=== PATIENT | male | born 1985 | race Caucasian/White ===

== ENCOUNTER 2020-12-03 22:31 | Emergency (ER) | payer OTHER, SELFPAY ==
[2020-12-03 22:45] VITALS: BP 116/64; PULSE 78; RESP 16; TEMP 36.6; O2SAT 96; BMI 36.1
--- NOTE | 2020-12-03 23:04 | ED.EYEPROB ---
HPI - Eye Problem General Chief complaint: Eye Problems Stated complaint: Foreign body in L eye Source: patient Mode of arrival: ambulatory Limitations: no limitations History of Present Illness HPI Narrative: 35-year-old male with no significant past medical history presents with a suspected foreign body in his left eye. He was working on his car welding and grinding, he was wearing a shield as well as safety glasses. He tried to irrigate the eye himself, but feels that there is something on the left side of his left eye. chief complaint: eye pain and eye redness Onset (ago): hour(s) Onset description: sudden Duration: constant Location: left eye Eye Symptoms: burning, redness, pain and foreign body sensation Place: home Mechanism: occurred while hammering/grinding Severity: moderate Severity scale (1-10): 7 If Pain, Quality: burning Associated symptoms: none Related Data Patient tetanus UTD: No Previous Rx's Medication Instructions Recorded erythromycin 0.5 inch OPHTHALMIC (EYE) Q4H #3.5 12/03/20 g Allergies Allergy/AdvReac Type Severity Reaction Status Date / Time acetaminophen [From TYLENOL] AdvReac Mild UPSET Unverified 06/20/20 17:07 STOMACH Review of Systems Review of Systems: Constitutional: No Fever, No Chills ENT/Mouth: No Ear Pain, No Hoarseness, No sore throat Eyes: Positive left Eye Pain, No Swelling, No Redness, No Foreign Body Cardiovascular: No Chest Pain, No SOB Respiratory: No Cough, No Dyspnea Gastrointestinal: No Nausea, No Vomiting, No Diarrhea, No abdominal Pain Genitourinary: No Dysuria, No Hematuria Musculoskeletal: No joint pain, No Myalgias, No Joint Swelling Skin: No Skin lacerations, No rash Neuro: No Weakness, No Numbness, No Paresthesias, No Loss of Consciousness, No Dizziness, No Headache Psych: No Anxiety/Panic, No Depression Heme/Lymph: no easy bruising, no Lymphadenopathy Endocrine: No Polyuria, No Polydipsia Yes all other systems are reviewed and are negative [facility] Past Medical History Attestation statement: The following information was validated with the patient. Source: old records reviewed Medical History No known health problems Social History Social History Advance Directives: No Physical Exam Vital Signs: Vital Signs: Last Vital Signs Temp 97.8 F 12/03/20 22:45 Pulse 78 12/03/20 22:45 Resp 16 12/03/20 22:45 BP 116/64 12/03/20 22:45 Pulse Ox 96 12/03/20 22:45 Body Mass Index 36.1 Appearance: Alert. Oriented X3. No acute distress. Eyes: Pupils equal, round and reactive to light. EOMI, no pain on extraocular movements. Linear approximately 2 mm in length Fluorescein uptake to the left lateral conjunctiva. Eyelids inverted no foreign bodies noted. ENT: Pharynx normal. Neck: Normal inspection. Neck supple. CVS: Normal heart rate and rhythm. Pulses normal. Respiratory: No respiratory distress. Breath sounds normal. Abdomen: Soft and nontender. Skin: Skin warm and dry. Normal skin color. Normal skin turgor. Extremities: No lower extremity edema. Neuro: No motor deficit. No sensory deficit. Course Course Course Narrative: 35-year-old male with no significant past medical history presents with a suspected foreign body to left eye after grinding and welding metal earlier today. PERRLA, EOMI. There is some fluorescein uptake, approximately 2 mm scratch on the left lateral conjunctiva. Plan of care is for updating Tdap and erythromycin eye ointment and follow up with Ophthalmology. Patient verbalized understanding of and agrees to plan of care discharge home. MDM - Eye Problem Differential Diagnosis Differential diagnosis: Likely corneal abrasion, conjunctivitis, acute iritis, hyphema and corneal ulcer Medical Records Attestation: I reviewed the patient's medical records. Discharge Plan Discharge Clinical Impression: Abrasion of conjunctiva, left Qualifiers: Encounter type: initial encounter Qualified Code(s): S05.02XA - Injury of conjunctiva and corneal abrasion without foreign body, left eye, initial encounter Patient Disposition: Home, Self-Care Instructions: Corneal Abrasion (ED) Additional Instructions: You were evaluated for foreign body suspected to the left eye. Your discharge instructions state corneal abrasion, you do have a conjunctival abrasion. The information is the same with the exception of the location of the injury. Please use erythromycin eye ointment every 4 hours while awake. Wash your hands before and after applying eye medication. Please follow-up with Dr. Zapata, call and make an appointment. Thank you for choosing this emergency department for evaluation. Please follow-up with primary care physician as needed. Return to the emergency department for any new, concerning, or worsening symptoms. Prescriptions: New erythromycin 5 mg/gram (0.5 %) ointment 0.5 inch ophthalmic (eye) Q4H Qty: 3.5 RF: 0 Referrals: Phu Zapata [Physician] - 2 days (Conjunctival abrasion left eye)
[2020-12-03] MEDS: Tetracaine HCl/PF 0.5% Oph Sol 4 ML DROPS 3 DROP EYE-LEFT (23:20)
[2020-12-03] MEDS: Erythromycin Base 0.5% Oph Oin 1 GM TUBE 1 CM EYE-LEFT (23:20)
[2020-12-03] MEDS: Eye Irrigation Solution 118 ML IRRIG.SOLN 1 APPL EYE-LEFT (23:20)
[2020-12-03] MEDS: Fluorescein Sodium STRIP 1 STRIP EYE-LEFT (23:21)
--- NOTE | 2020-12-03 23:27 | PC.NURSE ---
Left eye rinsed with eyewash solution. Pt medicated with Tetanus. Awaiting eye staining by SCANNING MANAGER.
== END 2020-12-04 00:14 | disposition home or self-care (01) ==
PROVIDERS: Emergency Provider Student in an Organized Health Care Education/Training Program; PCP Internal Medicine Endocrinology, Diabetes & Metabolism
DX: S05.02XA Injury of conjunctiva and corneal abrasion without foreign body, left eye, initial encounter (principal); X58.XXXA Exposure to other specified factors, initial encounter; Y93.89 Activity, other specified; Y92.015 Private garage of single-family (private) house as the place of occurrence of the external cause; Y99.9 Unspecified external cause status
CPT/HCPCS: 90471; 90715; 99283; 99284

== ENCOUNTER 2024-06-11 19:52 | Emergency (ER) | payer BC, SELFPAY ==
[2024-06-11 20:06] VITALS: BP 122/80; PULSE 77; RESP 16; TEMP 36.3; O2SAT 97; BMI 38.7
--- NOTE | 2024-06-11 20:08 | ED.GENADULT ---
HPI - General Adult General Chief complaint: Eye Problems Stated complaint: Metal in right eye Time Seen by Provider: 06/11/24 22:09 Related Data Previous Rx's ?Medication ?Instructions ?Recorded erythromycin 5 mg/gram (0.5 %) eye 0.5 inch ophthalmic (eye) Q4H #3.5 12/03/20 ointment grams erythromycin 5 mg/gram (0.5 %) eye 0.5 inch ophthalmic (eye) QID #3.5 06/11/24 ointment grams Allergies Allergy/AdvReac Type Severity Reaction Status Date / Time acetaminophen [From TYLENOL] AdvReac Mild UPSET Verified 06/11/24 20:07 STOMACH PMFSH Past Medical History Medical History No known health problems Social History Social History Advance Directives: No Advance Directives Information Provided: No Do you have a plan to hurt others: No Plan Physical Exam ED Vital Signs: Vital Signs - 24 hr 06/11/24 20:06 06/11/24 20:44 06/11/24 22:47 Temperature 97.4 F 97.0 F 97.0 F Pulse Rate 77 81 81 Respiratory Rate 16 18 18 Blood Pressure 122/80 125/85 125/85 Pulse Oximetry 97 98 98 Oxygen Delivery Method Room Air Room Air Room Air BMI result Body Mass Index 38.7 Course Course Course Narrative: RME performed by Cecile Negro PA-C. Patient is a 38 year old assigned male at presenting to the emergency department with right eye pain. Patient states he was grinding something in his garage, with safety goggles on, when he got a piece of metal in his right eye. Detailed physical exam and review of systems are deferred to the developing machine operator. Patient placed back in the waiting room pending room availability. Dr. Cartwright saw and dispositioned this patient. Please refer to her note from this encounter. Medications Administered Discontinued Medications Generic Name Dose Route Start Last Admin Trade Name Freq PRN Reason Stop Dose Admin Fluorescein Sodium 1 strip 06/11/24 20:08 06/11/24 20:21 Fluorescein Sodium Strip EYE-RIGHT 06/11/24 20:09 1 strip ONCE ONE Administration Tetracaine HCl 1 drop 06/11/24 20:08 06/11/24 20:21 Tetracaine Hcl/Pf 0.5% Oph Marjan 4 Ml Drops EYE-RIGHT 06/11/24 20:09 1 drop ONCE ONE Administration Discharge Plan Discharge Clinical Impression: Corneal abrasion Patient Disposition: Home, Self-Care Instructions: Corneal Abrasion (ED) Additional Instructions: Please follow-up with your primary care physician tomorrow. If you have any worsening or new symptoms, please return to the emergency room or call 911 Prescriptions: New erythromycin 5 mg/gram (0.5 %) ointment 0.5 inch ophthalmic (eye) QID Qty: 3.5 0RF No Action erythromycin 5 mg/gram (0.5 %) ointment 0.5 inch ophthalmic (eye) Q4H Qty: 3.5 0RF Rx Instructions: Conjunctival abrasion Referrals: Phu Zapata [Physician] - 06/12/24 Interventions: ED Discharge Assessment Last Done: 06/11/24 22:47 Discharge Date/Time: 06/11/24 22:48 Print Language: Icelandic
[2024-06-11] MEDS: Tetracaine HCl/PF 0.5% Oph Sol 4 ML DROPS 1 DROP EYE-RIGHT (20:21)
[2024-06-11] MEDS: Fluorescein Sodium STRIP 1 STRIP EYE-RIGHT (20:21)
[2024-06-11 20:44] VITALS: BP 125/85; PULSE 81; RESP 18; TEMP 36.1; O2SAT 98
--- NOTE | 2024-06-11 22:25 | ED_ITS ---
HPI - Eye Problem General Chief complaint: Eye Problems Stated complaint: Metal in right eye Time Seen by Provider: 06/11/24 22:09 Source: patient Mode of arrival: ambulatory Limitations: no limitations History of Present Illness ED Provider: Dr. Sariah Cartwright HPI Narrative: patient comes to the emergency room complaining of a foreign body versus scratch on his right eye. Patient states that earlier today he was working on his car, using a laboratory apparatus glass grinder, reports that although he was wearing safety glasses, a piece of metal flew inside of his eye. Patient denies any vision changes. Related Data Previous Rx's ?Medication ?Instructions ?Recorded erythromycin 5 mg/gram (0.5 %) eye 0.5 inch ophthalmic (eye) Q4H #3.5 12/03/20 ointment grams erythromycin 5 mg/gram (0.5 %) eye 0.5 inch ophthalmic (eye) QID #3.5 06/11/24 ointment grams Allergies Allergy/AdvReac Type Severity Reaction Status Date / Time acetaminophen [From TYLENOL] AdvReac Mild UPSET Verified 06/11/24 20:07 STOMACH Review of Systems Review of Systems: Constitutional : No Weight loss, No Fever, No Chills, No Night Sweats, No Fatigue, No Malaise ENT/Mouth : No Hearing loss, No Ear Pain, No Nasal Congestion, No Sinus Pain, No Hoarseness, No sore throat, No Rhinorrhea, No Swallowing Difficulty Eyes: Complaining of eye discomfort, tearing, erythema Cardiovascular : No Chest Pain, No SOB, No Dyspnea on Exertion, No Orthopnea, No Edema, No Palpitations Respiratory : No Cough, No Sputum, No Wheezing, No Smoke Exposure, No Dyspnea Gastrointestinal : No Nausea, No Vomiting, No Diarrhea, No Constipation, No abdominal Pain, No Hematochezia, No Melena Genitourinary : no irregular bleeding, No Dysuria, No Urinary Frequency, No Hematuria, No Urinary Incontinence, No Urgency, No Flank Pain, No Urinary Flow Changes, No Hesitancy Musculoskeletal : No joint pain, No Myalgias, No Joint Swelling Skin : No Skin Lesions, No rash Neuro : No Weakness, No Numbness, No Paresthesias, No Loss of Consciousness, No Dizziness, No Headache Psych : No Anxiety/Panic, No Depression, No SI/HI/AH/VH, No Social Issues, Heme/Lymph: No Bruising, No Bleeding,No Lymphadenopathy Endocrine : No Polyuria, No Polydipsia, No Temperature Intolerance [facility] Past Medical History Medical History No known health problems Social History Social History Advance Directives: No Advance Directives Information Provided: No Do you have a plan to hurt others: No Plan Physical Exam Vital Signs: Vital Signs: Last Vital Signs Temp 97.0 F 06/11/24 20:44 Pulse 81 06/11/24 20:44 Resp 18 06/11/24 20:44 BP 125/85 06/11/24 20:44 Pulse Ox 98 06/11/24 20:44 O2 Del Method Room Air 06/11/24 20:44 BMI result Body Mass Index 38.7 Const: Other: Appearance: Alert. Oriented X3. No acute distress. Eyes: Pupils equal, round and reactive to light. under the Wood's lamp with fluorescein stain, the patient did not have any visible metal in the cornea. Eyelid was inverted, no foreign bodies visualized. However, the patient does have a small corneal abrasion ENT: Pharynx normal. Neck: Normal inspection. Neck supple. No lymph nodes noted. No crepitus CVS: Normal heart rate and rhythm. Pulses normal. Normal S1 and S2 Respiratory: No respiratory distress. Breath sounds normal. No Wheezing. No rales Abdomen: Soft and nontender. No rigidity. No distention. Skin: Skin warm and dry. Normal skin color. Normal skin turgor. Extremities: No lower extremity edema. No Lacerations. No Rash Neuro: Oriented X 3. No motor deficit. No sensory deficit. Moving all extremities. No slurred speech. CN 2 through 12 grossly intact Psych: calm, cooperative, normal affect Medications Administered Discontinued Medications Generic Name Dose Route Start Last Admin Trade Name Freq PRN Reason Stop Dose Admin Fluorescein Sodium 1 strip 06/11/24 20:06/11/24 20:21 Fluorescein Sodium Strip EYE-RIGHT 06/11/24 20:09 1 strip ONCE ONE Administration Tetracaine HCl 1 drop 06/11/24 20:08 06/11/24 20:21 Tetracaine Hcl/Pf 0.5% Oph Marjan 4 Ml Drops EYE-RIGHT 06/11/24 20:09 1 drop ONCE ONE Administration Medical Decision Making Medical Decision Making [facility] Narrative: I discussed the physical exam with the patient, no obvious foreign body visualized in patient's eye Discharge Plan Discharge Clinical Impression: Corneal abrasion Patient Disposition: Home, Self-Care Instructions: Corneal Abrasion (ED) Additional Instructions: Please follow-up with your primary care physician tomorrow. If you have any worsening or new symptoms, please return to the emergency room or call 911 Prescriptions: New erythromycin 5 mg/gram (0.5 %) ointment 0.5 inch ophthalmic (eye) QID Qty: 3.5 0RF No Action erythromycin 5 mg/gram (0.5 %) ointment 0.5 inch ophthalmic (eye) Q4H Qty: 3.5 0RF Rx Instructions: Conjunctival abrasion Referrals: Phu Zapata [Physician] - 06/12/24 Print Language: Korean
[2024-06-11 22:47] VITALS: BP 125/85; PULSE 81; RESP 18; TEMP 36.1; O2SAT 98
== END 2024-06-11 22:48 | disposition home or self-care (01) ==
PROVIDERS: Emergency Provider Emergency Medicine; PCP Internal Medicine
DX: S05.01XA Injury of conjunctiva and corneal abrasion without foreign body, right eye, initial encounter (principal); W26.8XXA Contact with other sharp object(s), not elsewhere classified, initial encounter; Y93.89 Activity, other specified; Y92.89 Other specified places as the place of occurrence of the external cause; Y99.8 Other external cause status
CPT/HCPCS: 99283